=== PATIENT | female | born 1995 | race African-American/Black ===

== ENCOUNTER 2016-11-27 00:58 | Emergency (ER) | payer OTHER ==
[~2016-11-27] VITALS: Ht 154.9 cm; Wt 77.0 kg
[2016-11-27] MEDS ORDERED: FAMOTIDINE 20MG TABLET PO SCH (01:30)
[2016-11-27 03:40] VITALS: BP 122/73
== END 2016-11-27 03:40 | disposition home or self-care (01) ==
LOC: ER 01:00
DX: K21.9 Gastro-esophageal reflux disease without esophagitis (principal)
CPT/HCPCS: 71010; 99283

== ENCOUNTER 2017-04-12 00:44 | Emergency (ER) | payer OTHER ==
[~2017-04-12] VITALS: Ht 154.9 cm; Wt 61.0 kg
[2017-04-12] MEDS ORDERED: SODIUM CHLORIDE 0.9% 1,000 ML IV ONE (03:45)
[2017-04-12 03:58] LABS: BASOPHILS % 0.7 % (0.0-2.0); EOSINOPHILS % 0.7 % (0.0-5.0); HEMATOCRIT. 36.9 % (36.0-48.0); HEMOGLOBIN. 12.5 g/dL (12.0-16.0); LYMPHOCYTES % 39.7 % (20.0-50.0); MEAN CORPUSCULAR HEMOGLOBIN 29.9 pg (28.0-32.0); MEAN PLATELET VOLUME 8.3 fl (7.4-10.4); MONOCYTES % 7.8 % (2.0-8.0); NEUTROPHILS % 51.1 % (40.0-76.0); PLATELET 317 x1000/uL (130-400); RED BLOOD CELL COUNT 4.19 mill/uL (4.2-5.4)
[2017-04-12] MEDS ORDERED: LORAZEPAM 2MG/ML CPJ IV ONE (04:00)
[2017-04-12 04:05] LABS: CARBON DIOXIDE 21 mEq/L (21-32); CHLORIDE 108 mEq/L (98-107)
[2017-04-12 04:15] VITALS: BP 112/59
[2017-04-12] MEDS: ACETAMINOPHEN WITH CODEINE 300/30MG TABLET PO ONE ×2 (04:15→04:25)
[2017-04-12] MEDS ORDERED: LORAZEPAM 2MG/ML CPJ IM PRN (04:15)
[2017-04-12] MEDS ORDERED: ACETAMINOPHEN WITH CODEINE 120-12MG/5ML UDC PO ONE (05:15)
== END 2017-04-12 06:03 | disposition left against medical advice (07) ==
LOC: ER 00:44
DX: R42 Dizziness and giddiness (principal); F41.9 Anxiety disorder, unspecified; R00.2 Palpitations; R06.00 Dyspnea, unspecified; K21.9 Gastro-esophageal reflux disease without esophagitis
CPT/HCPCS: 36415; 80048; 81025; 85025; 93005; 96372; 99285; J2060; J7030; Z7610